=== PATIENT | male | born 1985 | race African-American/Black ===

== ENCOUNTER → 2024-11-28 09:18 | Outpatient (REF) | payer OTHER, SELFPAY ==
[2024-11-28 13:28] LABS: Varicella Zoster IgG (VZV) Positive
[2024-11-28 22:19] LABS: Hepatitis B Surface Antibody Positive
[2024-11-30 13:01] LABS: Quantiferon TB Gold Plus Negative (Negative)
== END ==
LOC: OHS 09:18
PROVIDERS: ATTENDING PHYSICIAN Nurse Practitioner Family
DX: Z23 Encounter for immunization (principal)
CPT/HCPCS: 36415; 86480; 86706; 86787